=== PATIENT | male | born 1985 | race Caucasian/White ===

== ENCOUNTER 2021-10-16 10:45 | Emergency (ER) | payer BC ==
[~2021-10-16] VITALS: Ht 180.3 cm; Wt 86.2 kg
[2021-10-16] MEDS ORDERED: AUGM12TA11 PO (12:31)
[2021-10-16] MEDS ORDERED: FLON27.5 NARES (12:32)
[2021-10-16 12:45] VITALS: BP 140/91
== END 2021-10-16 12:54 | disposition home or self-care (01) ==
LOC: M ED 10:45
DX: H65.01 Acute serous otitis media, right ear (principal); J01.90 Acute sinusitis, unspecified

== ENCOUNTER → 2022-02-23 | Outpatient (REF) | payer OTHER, BC ==
[~2022-02-23] MED LIST: AUGM12TA11 PO; FLON27.5 NARES
== END ==
LOC: M SMT 12:44
PROVIDERS: ATTEND Urology
DX: Z30.2 Encounter for sterilization (principal)